=== PATIENT | female | born 1965 | race Caucasian/White ===

== ENCOUNTER 2025-06-12 12:51 | Outpatient (CLI) | payer MEDICARE, MEDICAID, SELFPAY ==
--- NOTE | ~2025-06-12 | US_ITS ---
US soft tissue LE RT 06/12/2025 13:17 Indication: Synovial cyst of the popliteal space Procedure: Soft tissue ultrasound of the right popliteal space Comparison: No prior studies for comparison. Findings: There is a small echogenic focus located superficially measuring 5 mm, likely benign lipoma . No evidence for Kyle's cyst. No other masses or fluid collections. Impression: 1: Probable benign 5 mm lipoma located superficially. No follow-up required unless clinical examinati on changes. Reviewed, dictated and finalized at location A. Impression: 1: Probable benign 5 mm lipoma located superficially. No follow-up required unl ess clinical examination changes.
== END 2025-06-12 12:52 | disposition home or self-care (01) ==
PROVIDERS: PCP Physician Assistant; Visit Provider Physician Assistant
DX: M71.21 Synovial cyst of popliteal space [Baker], right knee (principal); E11.9 Type 2 diabetes mellitus without complications; E66.01 Morbid (severe) obesity due to excess calories; F40.9 Phobic anxiety disorder, unspecified; F41.1 Generalized anxiety disorder; H60.90 Unspecified otitis externa, unspecified ear; M25.561 Pain in right knee; Z98.84 Bariatric surgery status
CPT/HCPCS: 76882

== ENCOUNTER 2025-08-27 13:42 | Outpatient (CLI) | payer MEDICARE, MEDICAID, SELFPAY ==
--- NOTE | ~2025-08-27 | MR_ITS ---
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 Sequences included coronal PD-weighted FSE, coronal PD-weighted FS FSE, sagittal T2-weighted FSE, sagittal PD-weighted FS FSE and axial PD weighted fat saturated FSE. COMPARISON: None. FINDINGS: Medial compartment: Medial extrusion of the medial meniscal body. There is increased intrasubstance signal within the meniscal body and medial side of the posterior horn which does not unambiguously contact the articular surface to suggest meniscal tear this be consistent with mucoid degeneration. Irregular complex tear/fraying along the free edge and inner third of the anterior horn of the medial meniscus. There is partial thickness chondral ulceration which appears to involve greater than 50% the cartilage thickness with underlying subarticular edema-like signal change at the anterior and anteromedial aspect of the medial tibial plateau and the medial margin of the anterior weightbearing medial femoral condyle. Less severe partial thickness cartilage loss without degenerative subchondral changes at the central aspect of the medial tibial plateau and along the remainder of the anterior to central weightbearing medial femoral condyle. Lateral compartment: Lateral meniscus is normal. Articular cartilage is normal. Small marginal osteophytes are present. Patellofemoral compartment: Partial-thickness cartilage loss throughout the medial patellar facet with partial-thickness chondral fissuring without degenerative subchondral changes along the medial aspect of the medial patellar facet and at the central aspect of the patellar apical ridge. More shallow chondral ulceration without degenerative subchondral changes at the inferior aspect of the trochlear groove. Ligaments and tendons: Anterior and posterior cruciate ligaments are normal. The medial collateral ligament and the fibular collateral ligament complex are normal. The extensor mechanism is normal. The visualized medial and lateral hamstring tendons as well as the iliotibial band are normal. Fluid: Very small joint effusion at the suprapatellar pouch. Small ossicle anterior to the distal anterior cruciate ligament which could represent a degenerative loose body or heterotopic ossification along the anterior margin of Hoffa's fat pad. Osseous/other: Bone alignment is normal. No fracture or pathologic marrow replacing process. IMPRESSION: 1. Complex tear involving the inner third of the anterior horn of the medial meniscus with medial extrusion and mucoid degeneration of the meniscal body. 2. 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 3. Very small right knee joint effusion. Reviewed, dictated and finalized at location A. IMPRESSION: 1. Complex tear involving the inner third of the anterior horn of the medial me niscus with medial extrusion and mucoid degeneration of the meniscal body. 2. 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 3. Very small right knee joint effusion.
== END 2025-08-27 13:43 | disposition home or self-care (01) ==
PROVIDERS: PCP Internal Medicine; Visit Provider Internal Medicine
DX: M17.31 Unilateral post-traumatic osteoarthritis, right knee (principal); S83.231A Complex tear of medial meniscus, current injury, right knee, initial encounter; M17.11 Unilateral primary osteoarthritis, right knee; M22.41 Chondromalacia patellae, right knee; M25.461 Effusion, right knee; X58.XXXA Exposure to other specified factors, initial encounter
CPT/HCPCS: 73721